=== PATIENT | male | born 1945 | race Caucasian/White ===

== ENCOUNTER → 2023-08-05 11:13 | Outpatient (REF) | payer OTHER, SELFPAY | LOC: RAD 11:13 | PROVIDERS: ATTENDING PHYSICIAN Nurse Practitioner Family | DX: R51.9 Headache, unspecified (principal) | CPT/HCPCS: 70450 ==

== ENCOUNTER 2023-08-19 | Emergency (ER) | payer OTHER, SELFPAY ==
[2023-08-19 00:02] VITALS: BP 130/75
--- NOTE | 2023-08-19 00:44 | ED.GENMED ---
History of Present Illness
General
Chief Complaint: Nose Bleed
Source: patient
Exam Limitations: none
Time Seen by Provider: 08/19/23 00:35
Travel History
Have you had any contact with someone who has COVID-19?: No
Do you have any symptoms of coronavirus? Fever > 100 degrees, chills, cough, shortness of breath, sore throat, loss of taste or smell, muscle aches, or headache?: No
History of Present Illness
History of Present Illness:
Patient with nosebleed left nares started about 10 PM. Occurred while blowing his nose. No thinners. No other complaints. Moderate bleeding reported by the patient
Past History
Past History
ED Past Medical History: Cancer (Prostate), HTN, Hypercholesterolemia, NIDDM, [place] and Other (History of gout, diabetic neuropathy, hemorrhoids, diverticulosis, cataracts and stage III kidney disease)
ED Past Surgical History: Other (Cataract surgery, and detached retina surgery)
Social History
Tobacco: Non-smoker
Alcohol: None
Drug: None
Personal: Partner
Living: with family
Employment: Employed
Review of Systems
Review of Systems
All Other Systems: Not applicable
Phy Exam
Physical Exam
Physical Exam:
General: Nontoxic appearing in no distress
Skin: Warm and dry, no rash
Neuro: Alert, nontoxic, grossly nonfocal
Psychiatric: Good eye contact and appropriate
ENT: Moderate bleeding left nares. Moderate blood in the oropharynx.
Course
Vital Signs
Initial and Last Documented VS:
Initial Vital Signs
Temp Pulse Resp BP Pulse Ox
98.3 F 104 18 130/75 99
08/19/23 00:02 08/19/23 00:02 08/19/23 00:02 08/19/23 00:02 08/19/23 00:02
Last Documented Vital Signs
Temp Pulse Resp BP Pulse Ox
98.3 F 104 18 130/75 99
08/19/23 00:02 08/19/23 00:02 08/19/23 00:02 08/19/23 00:02 08/19/23 00:02
Procedures
Nosebleed
Drug treatment: Epinephrine
Treatment: Silver nitrate cautery and Merocel packing
Post treatment bleeding: other (Large clot removed. Bleeding from the left nares. Cauterized. Merisel with epinephrine.)
*Critical Care Note
Total Time (30-74mins, 75-104mins- exclusive of procedures): Not Applicable
Update Note
Update Note:
Recheck no bleeding. Stable for discharge
ED Attending Note
-
Portions of this chart may have been created with voice recognition software.� Occasional wrong word or��sound alike� substitutions may have occurred due to the inherent limitations of voice recognition software.
Discharge Plan
Departure
Patient Disposition: Home (Routine Discharge)
Date of Disposition: 08/19/23
Time of Disposition: 01:29
Patient with high blood pressure during this ER visit?: Yes
Discharge Problem:
Epistaxis
Instructions: Nosebleeds (DC), BLOOD PRESSURE
Prescriptions:
No Action
atorvastatin 40 MG tablet
40 mg PO HS
carvedilol 25 MG tablet
25 mg PO BID
omeprazole 40 MG capsule,delayed release(DR/EC)
40 mg PO DAILY
aspirin 81 MG tablet,delayed release (DR/EC)
81 mg PO DAILY
glipizide 10 MG tablet extended release 24hr
10 mg PO BID
sertraline 100 MG tablet
100 mg PO HS
clobetasol-emollient 50 GM foam
1 applic EACH EAR DAILYPRN PRN (Reason: eczema)
melatonin 5 MG tablet
5 mg PO HSPRN PRN (Reason: insomnia)
Anoro Ellipta 1 EACH blister with device
1 ea inhalation R DAILY
cholecalciferol (vitamin D3) 5,000 UNIT tablet,disintegrating
5,000 unit PO DAILY
allopurinol 100 MG tablet
100 mg PO DAILY
sertraline 25 MG tablet
25 mg PO HS
bupropion HCl 150 MG tablet extended release 24 hr
150 mg PO DAILY
PreserVision AREDS-2 1 EACH capsule
1 ea PO BID
Blood Sugar Blaster 1 CAPSULE Capsule
1 cap PO BID
Jardiance 10 MG tablet
10 mg PO DAILY Qty: 90 3RF
levothyroxine 100 mcg tablet
100 mcg PO DAILY
allopurinol 300 mg Tablet
300 mg PO DAILY
Visbiome 112.5 billion cell Capsule
1 cap PO DAILY
acetaminophen 325 MG tablet
650 mg PO Q4HPRN PRN (Reason: mild pain, fever)
hydrocodone-acetaminophen 5-325 mg tablet
1 tab PO Q6H PRN (Reason: pain) Qty: 5 0RF
amoxicillin-pot clavulanate [Augmentin] 500-125 mg tablet
1 tab PO Q12H Qty: 20 0RF
Referrals:
Ahsan Spears MD [Family Provider] -
Christiano Galindo MD [Active] - Follow up in 2-3 days
Activity Restrictions/Additional Instructions:
Packing removal in 2 to 3 days
Interventions
Interventions:
*General Assessment Last Done: 08/19/23 00:02
ED-EENT Assessment Last Done: 08/19/23 00:30
Discharge Date and Time
Print Language: ITALIAN
== END 2023-08-19 01:35 | disposition home or self-care (01) ==
LOC: EMR
PROVIDERS: EMERGENCY PHYSICIAN Emergency Medicine; FAMILY PHYSICIAN Internal Medicine Geriatric Medicine
DX: R04.0 Epistaxis (principal); I12.9 Hypertensive chronic kidney disease with stage 1 through stage 4 chronic kidney disease, or unspecified chronic kidney disease; E11.22 Type 2 diabetes mellitus with diabetic chronic kidney disease; N18.30 Chronic kidney disease, stage 3 unspecified; E11.36 Type 2 diabetes mellitus with diabetic cataract; E11.40 Type 2 diabetes mellitus with diabetic neuropathy, unspecified; E78.00 Pure hypercholesterolemia, unspecified; Z87.19 Personal history of other diseases of the digestive system
CPT/HCPCS: 99282; 30901

== ENCOUNTER → 2023-09-28 13:25 | Outpatient (REF) | payer OTHER, SELFPAY | LOC: RAD 13:25 | PROVIDERS: ATTENDING PHYSICIAN Specialist; FAMILY PHYSICIAN Family Medicine | DX: N17.9 Acute kidney failure, unspecified (principal) | CPT/HCPCS: 76770 ==

== ENCOUNTER 2024-01-18 13:34 | Emergency (ER) | payer OTHER, SELFPAY ==
[2024-01-18 13:38] VITALS: BP 155/79
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
[2024-01-18 16:55] VITALS: BP 142/89
== END 2024-01-18 17:21 | disposition home or self-care (01) ==
LOC: EMR 13:34
PROVIDERS: EMERGENCY PHYSICIAN Student in an Organized Health Care Education/Training Program; FAMILY PHYSICIAN Family Medicine
DX: S62.525A Nondisplaced fracture of distal phalanx of left thumb, initial encounter for closed fracture (principal); S05.12XA Contusion of eyeball and orbital tissues, left eye, initial encounter; S40.022A Contusion of left upper arm, initial encounter; V59.88XA Occupant (driver) (passenger) of pick-up truck or van injured in other specified transport accidents, initial encounter; I10 Essential (primary) hypertension; E78.00 Pure hypercholesterolemia, unspecified; E11.40 Type 2 diabetes mellitus with diabetic neuropathy, unspecified; I25.2 Old myocardial infarction; M77.8 Other enthesopathies, not elsewhere classified
CPT/HCPCS: 29130; 99284; 70450; 73030; 73060; 73140

== ENCOUNTER → 2024-08-24 09:54 | Outpatient (REF) | payer MEDICARE, SELFPAY | LOC: HWRCS 09:54 | PROVIDERS: ATTENDING PHYSICIAN Nuclear Medicine Nuclear Cardiology; FAMILY PHYSICIAN Family Medicine | DX: R06.02 Shortness of breath (principal); I10 Essential (primary) hypertension; R94.39 Abnormal result of other cardiovascular function study | CPT/HCPCS: 93306 ==

== ENCOUNTER → 2024-09-04 07:31 | Outpatient (REF) | payer MEDICARE, SELFPAY | LOC: RCS 07:31 | PROVIDERS: ATTENDING PHYSICIAN Nuclear Medicine Nuclear Cardiology; FAMILY PHYSICIAN Family Medicine; REFERRING PHYSICIAN Internal Medicine Critical Care Medicine | DX: R06.02 Shortness of breath (principal); I10 Essential (primary) hypertension; R94.39 Abnormal result of other cardiovascular function study; R91.1 Solitary pulmonary nodule | CPT/HCPCS: 71046; 78452; 93017; A9500; J2785 ==